=== PATIENT | female | born 1980 | race Caucasian/White ===

== ENCOUNTER 2020-08-09 13:58 | Emergency (ER) | payer MEDICAID, OTHER ==
[~2020-08-09] VITALS: Ht 162.6 cm; Wt 58.5 kg
[2020-08-09 14:00] VITALS: BP 192/98
--- NOTE | 2020-08-09 14:06 | NUR ---
PT ambulated to bed 04.
--- NOTE | 2020-08-09 14:08 | NUR ---
Pt ambulated to restroom for UA collection.
--- NOTE | 2020-08-09 14:10 | NUR ---
40 Y/O FEMALE C/O LEFT GROIN PAIN X1DAY 03/14 DESCRIBES THROBBING. DENIES N/V, DENIES FEVER/CHILLS, DENIES SOB, DENIES DYSURIA. PT HAS NOT TAKEN RX. DENIES PMH NKA
[2020-08-09] MEDS ORDERED: KETOROLAC 30 MG/ML VIAL IM ONE (14:15)
--- NOTE | 2020-08-09 14:26 | NUR ---
Klaudia díaz in [facility] - 08/09/20 at 1445 by [email or web address] Obtained consent placed in chart, pt taken to CT via W/C.
[2020-08-09 14:58] LABS: APPEARANCE,URINE CLOUDY (CLEAR); BILIRUBIN,URINE NEGATIVE (NEGATIVE); BLOOD, URINE NEGATIVE (NEGATIVE); COLOR,URINE YELLOW (YELLOW); LEUKOCYTE ESTERASE ,URINE 1+ (NEGATIVE); NITRITE, URINE POSITIVE (NEGATIVE); PH,URINE 6.5 (5.0-9.0); UGLUCOSE NEGATIVE (NEGATIVE)
[2020-08-09 15:19] LABS: RBC,URINE 0-5 /HPF (0-5); WBC,URINE 16-25 (MOD) /HPF (0-5)
[2020-08-09 15:20] LABS: TRICHOMONAS,URINE Few /HPF (None Seen)
[2020-08-09] MEDS ORDERED: METR500T1 PO (15:22)
[2020-08-09] MEDS ORDERED: IBUP-1842 PO (15:24)
[2020-08-09 15:40] VITALS: BP 192/98
--- NOTE | 2020-08-09 15:41 | NUR ---
Patient discharged with v/s stable. Written and verbal after care instructions given and explained. Patient alert, oriented and verbalized understanding of instructions. Ambulatory with steady gait. All questions addressed prior to discharge. ID band removed. Patient advised to follow up with PMD. Rx of ibuprofen 400mg po q6h, and flagyl 500mg po [id number]. Patient educated on indication of medication including possible reaction and side effects. Opportunity to ask questions provided and answered.
--- NOTE | 2020-08-12 12:50 | NUR ---
LATE ENTRY---Culture results received from lab. Results shown to Dr. Fajardo. New prescription received. New RX for Bactrim DS 1 tab PO X 5 days called into patient's preferred pharmacy- [facility]. Patient called to notify about changes in new medications. Pt verbalized understanding and pt instructed to follow up with pharmacy in 30 minutes.
== END 2020-08-09 15:41 | disposition home or self-care (01) ==
LOC: MED 13:58
DX: N76.0 Acute vaginitis (principal); B96.89 Other specified bacterial agents as the cause of diseases classified elsewhere; A59.9 Trichomoniasis, unspecified; Z79.899 Other long term (current) drug therapy
CPT/HCPCS: 36415; 81001; 81025; 87070; 87086; 87210; 96372; 99283; J1885; 87491

== ENCOUNTER 2020-11-15 00:38 | Emergency (ER) | payer MEDICAID ==
[~2020-11-15] VITALS: Ht 157.5 cm; Wt 51.3 kg
[~2020-11-15 00:38] MED LIST: IBUP-1842 PO; METR500T1 PO
[2020-11-15 00:40] VITALS: BP 140/99
--- NOTE | 2020-11-15 00:40 | NUR ---
see patient assessment for patient information.
--- NOTE | 2020-11-15 00:44 | NUR ---
Pt ambulated to chair C w/ steady gait.
--- NOTE | 2020-11-15 01:01 | NUR ---
Dr. Giles examining patient.
[2020-11-15] MEDS ORDERED: FAMOTIDINE 20 MG TAB PO ONE (01:05)
[2020-11-15] MEDS ORDERED: diphenhydrAMINE 50 MG/ML VIAL IM ONE (01:05)
[2020-11-15] MEDS ORDERED: methylPREDNISolone SS 125 MG/2 ML VIAL IM ONE (01:05)
[2020-11-15] MEDS ORDERED: [UNRECOGNIZED DRUG - CODE] PO (01:08)
[2020-11-15] MEDS ORDERED: PRED20TA5 PO (01:08)
[2020-11-15] MEDS ORDERED: EPIN1KIT31 IM (01:08)
[2020-11-15] MEDS ORDERED: DIPH25TA53 PO (01:08)
--- NOTE | 2020-11-15 01:36 | NUR ---
d/c without accepting d/c paperwork. Dr. Giles made aware.
== END 2020-11-15 01:36 | disposition home or self-care (01) ==
LOC: MED 00:38
DX: T78.49XA Other allergy, initial encounter (principal)
CPT/HCPCS: 96372; 99284; J1200; J2930